=== PATIENT | female | born 1990 | race African-American/Black ===

== ENCOUNTER 2018-11-29 10:05 | Emergency (ER) | payer MEDICAID, OTHER ==
[~2018-11-29] VITALS: Ht 175.3 cm; Wt 87.0 kg
[2018-11-29 10:17] VITALS: BP 121/83
== END 2018-11-29 13:21 | disposition home or self-care (01) ==
LOC: ER 12:21
DX: J06.9 Acute upper respiratory infection, unspecified (principal)
CPT/HCPCS: 71045; 99283

== ENCOUNTER 2019-02-18 00:21 | Emergency (ER) | payer OTHER ==
[~2019-02-18] VITALS: Ht 175.3 cm; Wt 86.0 kg
[2019-02-18 01:38] VITALS: BP 115/88
== END 2019-02-18 04:15 | disposition left against medical advice (07) ==
LOC: ER 00:21
DX: Z53.21 Procedure and treatment not carried out due to patient leaving prior to being seen by health care provider (principal)

== ENCOUNTER 2020-03-19 12:58 | Emergency (ER) | payer OTHER ==
[~2020-03-19] VITALS: Ht 175.3 cm; Wt 78.0 kg
[2020-03-19 13:05] VITALS: BP 118/75
[2020-03-19] MEDS ORDERED: AMOXICILLIN/POTASSIUM CLAVULANATE 875/125MG TAB PO ONE (13:45)
[2020-03-19] MEDS ORDERED: ACETAMINOPHEN 500MG TABLET PO ONE (13:45)
== END 2020-03-19 13:47 | disposition home or self-care (01) ==
LOC: ER 12:58
DX: L03.115 Cellulitis of right lower limb (principal)
CPT/HCPCS: 99283

== ENCOUNTER 2020-11-03 17:19 | Emergency (ER) | payer OTHER ==
[~2020-11-03] VITALS: Ht 165.1 cm; Wt 91.0 kg
[2020-11-03] MEDS ORDERED: ACETAMINOPHEN WITH CODEINE 300/30MG TABLET PO ONE (18:00)
[2020-11-03] MEDS ORDERED: FLUORESCEIN SODIUM 1MG/STRIP RIGHTEYE ONE (18:00)
[2020-11-03] MEDS ORDERED: TETRACAINE 0.5% OPHTH DROPS 4ML RIGHTEYE ONE (18:00)
[2020-11-03] MEDS ORDERED: ERYTHROMYCIN BASE 0.5% OPHTH OINT 3.5GM RIGHTEYE ONE (18:45)
[2020-11-03 18:52] VITALS: BP 138/93
== END 2020-11-03 18:57 | disposition home or self-care (01) ==
LOC: ER 17:19
DX: S05.01XA Injury of conjunctiva and corneal abrasion without foreign body, right eye, initial encounter (principal); X58.XXXA Exposure to other specified factors, initial encounter; Y93.89 Activity, other specified; Y92.89 Other specified places as the place of occurrence of the external cause; Y99.8 Other external cause status
CPT/HCPCS: 99284